=== PATIENT | male | born 1955 | race Caucasian/White ===

== ENCOUNTER → 2017-04-21 | Outpatient (CLI) | payer OTHER ==
[~2017-04-21] MED LIST: ACTOS30 MG PO; ASPIR-TRIN325 MG PO; BAYER ASPIRIN325 M1 PO; CLOPIDOGREL BIS75 MG PO; CRESTOR PO; EFFIENT10 MG PO; GLIMEPIRIDE2 MG PO; HYDROCODON-ACE1 EAC1 PO; HYDROCODON-ACE1 EAC4 PO; IMDUR-ER30 M2 PO; IMDUR-ER60 M1 PO; JANUMET 50-1,1 UDTAB PO; KLONOPIN1 MG PO; LISINOPRIL-HCTZ1 T14 PO; LISINOPRIL-HCTZ1 T19 PO; METFORMIN HCL1000 M1 PO; METFORMIN PO; NIASPAN750 MG PO; NITROSTAT0.4 MG SL; NORCO 10/3251 TAB PO; NORCO 7.5-3251 EACH PO; NORVASC PO; POLYSACC IRON150 MG PO; RANEXA500 MG PO; STARLIX PO; TOPAMAX200 MG PO; TOPAMAX50 MG PO; TOPROL XL100 MG PO; TOPROL XL50 MG PO; ULTRAM PO; VICTOZA 3-0.6 MG/0.1; VICTOZA0.6 MG/0.1; VITAMIN C500 M1 PO; ZESTORETIC 20-1 EAC1 PO
--- NOTE | ~2017-04-21 | EKG ---
PATIENT: RUY STANFORD UNIT #: [id number] Ventricular Rate: 63 BPM Atrial Rate: 63 BPM P-R Interval: 132 ms QRS Duration: 102 ms Q-T Interval: 410 ms QTC Calculation(Bezet): 419 ms P [place]: 27 degrees Calculated R [place]: 18 degrees Calculated T [place]: 13 degrees Diagnosis Line: Normal sinus rhythm Diagnosis Line: Inferior infarct , age undetermined Diagnosis Line: Abnormal ECG Diagnosis Line: No previous ECGs available Diagnosis Line: Confirmed by SHEREE CLAUDIO MD ([id number]) on 04/21/2017 Diagnosis Line: 6:56:04 PM INTERPRETING MD: SHANON LAINEZ
[2017-04-21 13:02] LABS: HEMATOCRIT 44.5 % (38.0-50.0); HEMOGLOBIN 14.1 gm/dL (13.0-16.0); MEAN CELL VOLUME 75.3 FL (83-96); MEAN CORPUSCULAR HEMOGLOBIN 23.8 PG (28-34); MEAN CORPUSCULAR HGB CONC 31.7 g/dL (30-36); MEAN PLATELET VOLUME 9.8 FL (6.5-11.5); RED BLOOD COUNT 5.91 X10e (3.90-5.60); RED CELL DISTRIBUTION WIDTH 17.5 % (11.0-15.5); WHITE BLOOD COUNT 10.1 X10e3 (4.0-10.5)
[2017-04-21 13:27] LABS: BUN/CREATININE RATIO 18.88; CALCIUM SERUM 9.3 mg/dL (8.4-10.2); CREATININE SERUM 0.9 mg/dL (0.6-1.4); GLOM FILT RATE Estimated 92.5 mL/min (>60); POTASSIUM 4.3 mmol/L (3.5-5.1)
== END | disposition home or self-care (01) ==
LOC: CAMB 10:38
PROVIDERS: Surgery
DX: Z01.818 Encounter for other preprocedural examination (principal)
CPT/HCPCS: 36415; 80048; 85027; 93005

== ENCOUNTER → 2017-04-26 | Day surgery (SDC) | payer OTHER ==
--- NOTE | ~2017-04-26 | OR ---
Unit #: [id number] #: [id number] Patient: RUY STANFORD SR [id number] [address] [place], [place] [address] [id number] MR#: [id number] NAME: RUY STANFORD SR ROOM: Date of Procedure: 04/26/2017 Admission Date: 04/26/2017 Surgeon: Trey Pino III, M.D. : 1955 Attending Physician: Trey Pino III, M.D. Primary Care Physician: Karan Grimes M.D. OPERATIVE REPORT PREOPERATIVE DIAGNOSIS Left gluteal hematoma. POSTOPERATIVE DIAGNOSIS Left gluteal mass. ANESTHESIA General. SPECIMEN Mass sent to Pathology as well as cultures. COMPLICATIONS None apparent. DRAINS None. 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 He recently developed some severe left hip pain and repeat imaging showed that this was a stable mass. He had other etiologies that is looked at and he is convinced that it may be related to this mass. We had a long conversation in the office prior to the procedure that although we may be successful excising the mass, the pain may be due to something else. He understands that and wishes to proceed. DESCRIPTION OF PROCEDURE After consent was obtained, the patient was brought to the operating room and placed in the supine position. General anesthetic was administered and he was then placed comfortably in the prone position. We prepped and draped his left gluteal region in standard surgical fashion. This area did occupy a good portion of his left gluteal muscle. I noted that it was oriented from the sacrum towards the left lower gluteal region. I made a tangential incision along the long axis. I dissected down and identified the left gluteal muscle and ultimately incised along the direction of the fibers and identified this very unusual mass. It was approximately 9 inches long and several inches wide. It had a very gelatinous-like fluid that was sticky surrounding it. I was able to shell this out from the surrounding muscle. This was sent to Pathology and I took cultures of the fluid as well. It was very unusual looking. I irrigated and had good Unit #: [id number] #: [id number] Patient: HIEN ,RUY villalta and I reapproximated the gluteus muscle with some interrupted 2-0 Vicryl sutures. The subcutaneous layer was reapproximated with interrupted 3-0 Vicryl suture and the skin tissue was reapproximated with a running 4-0 Vicryl subcuticular suture. Steri-Strips were then applied. The patient tolerated the procedure without any problems and returned to the recovery room in stable condition. Dictated by... Trey Pino III, M.D. VCL/fam TD: 04/26/2017 15:20 JOB #: [id number] OPERATIVE REPORT Page 1 of 1 X Trey Pino III, MD PROCEDURE OPERATIVE NOTE
== END | disposition home or self-care (01) ==
LOC: CSUR 07:14
DX: D21.5 Benign neoplasm of connective and other soft tissue of pelvis (principal); I25.10 Atherosclerotic heart disease of native coronary artery without angina pectoris; E11.9 Type 2 diabetes mellitus without complications; I10 Essential (primary) hypertension; E78.5 Hyperlipidemia, unspecified; Z87.891 Personal history of nicotine dependence; Z87.01 Personal history of pneumonia (recurrent); Z88.1 Allergy status to other antibiotic agents; Z88.8 Allergy status to other drugs, medicaments and biological substances; Z79.02 Long term (current) use of antithrombotics/antiplatelets; Z79.84 Long term (current) use of oral hypoglycemic drugs; Z79.82 Long term (current) use of aspirin; Z79.899 Other long term (current) drug therapy; Z90.49 Acquired absence of other specified parts of digestive tract; Z98.84 Bariatric surgery status; Z98.890 Other specified postprocedural states
CPT/HCPCS: 82947; 87070; 87075; 87205; 88305; J0330; J2250; J2270; J2405; J3010